=== PATIENT | female | born 1960 | race Caucasian/White ===

== ENCOUNTER → 2019-02-06 12:04 | Outpatient (CLI) | payer OTHER, SELFPAY ==
--- NOTE | 2019-02-06 12:05 | DI.MG.S_ITS ---
BILATERAL DIGITAL SCREENING MAMMOGRAM 3D/2D WITH CAD: 02/06/2019 CLINICAL: Routine screening. Comparison is made to exams dated: 09/17/2014 mammogram, 10/14/2010 mammogram, and 08/13/2008 mammogram - [facility]. The tissue of both breasts is extremely dense, which lowers the sensitivity of mammography. Current study was also evaluated with a Computer Aided Detection (CAD) system. No significant masses, calcifications, or other findings are seen in either breast. There has been no significant interval change. IMPRESSION: NEGATIVE There is no mammographic evidence of malignancy. A 1 year screening mammogram is recommended. This exam was interpreted at Station ID: [id number]. NOTE: For mammograms, a report in lay terms will be sent to the patient. Approximately 15% of breast malignancies will not be visualized mammographically. In the management of a palpable breast mass, a negative mammogram must not discourage biopsy of a clinically suspicious lesion. Electronically Signed By: Kylah philippe/ernesto:02/06/2019 13:03:02 letter sent: Normal Exam ACR BI-RADS Category 1: Negative 3341F
== END ==
PROVIDERS: PCP Student in an Organized Health Care Education/Training Program; Visit Provider Student in an Organized Health Care Education/Training Program
DX: Z12.31 Encounter for screening mammogram for malignant neoplasm of breast (principal)
CPT/HCPCS: 77063; 77067

== ENCOUNTER 2019-08-15 10:22 | Outpatient (CLI) | payer OTHER, SELFPAY ==
--- NOTE | 2019-08-15 10:23 | DI.RAD.S_ITS ---
PROCEDURE: PAIN C/T FACET INJ/BLK 1ST L INDICATIONS: SPONDYLOSIS FINDINGS: Fluoroscopic spot filming was performed to verify placement of spinal needles at the C4-C5, C5-C6 and C6-C7 level(s), as labeled on the films. Appropriate location(s) of the needle tip(s) was confirmed by injection of iodinated contrast. IMPRESSION: Fluoroscopy for pain management. Dictated by: Yasmin Maya M.D. on 08/15/2019 at 15:43 Approved by: Yasmin Maya M.D. on 08/15/2019 at 15:44
[2019-08-15 10:44] VITALS: BP 104/64; PULSE 76; RESP 16; TEMP 36.2; O2SAT 98
[2019-08-15 11:22] VITALS: BP 113/76; PULSE 72; RESP 16; O2SAT 98
[2019-08-15 11:27] VITALS: BP 110/76; PULSE 74; RESP 16; O2SAT 97
--- NOTE | 2019-08-15 11:29 | PC.NURSE ---
NO SEDATION MEDS GIVEN AT THIS TIME.
[2019-08-15 11:32] VITALS: BP 110/80; PULSE 70; RESP 16; O2SAT 97
[2019-08-15] MEDS: IOPAMIDOL 15 ML VIAL 3 ML INJ (11:35)
[2019-08-15] MEDS: BUPIVACAINE 0.5% (PF) VIAL 2 ML INJ (11:35)
[2019-08-15] MEDS: DEXAMETHASONE 10 MG/ML VIAL 30 MG INJ (11:36)
[2019-08-15 11:37] VITALS: BP 109/76; PULSE 74; RESP 16; O2SAT 98
--- NOTE | 2019-08-15 11:38 | PC.NURSE ---
NO SEDATION MEDS GIVEN. ASSISTING PT OFF TABLE AND TRANSPORTING TO POST PROC AREA IN STABLE CONDITION. PASSING RN CARE OF PT OFF TO GÓMEZ Fernandez RN
--- NOTE | 2019-08-15 11:41 | PM.PROC.1 ---
Procedures Date/Time Date of procedure: 08/15/19 Time of procedure: 11:42 General Procedure description: PREOP DIAGNOSIS 1. FACET ARTHROPATHY 2. AXIAL NECK PAIN POST OP DIAGNOSIS 1. FACET ARTHROPATHY 2. AXIAL NECK PAIN PROCEDURES 1. FLUOROSCOPICALLY GUIDED, CONTRAST-CONTROLLED LEFT C4/5, C5/6 AND C6/7 FACET JOINT INJECTIONS WITH CONSCIOUS SEDATION. PHYSICIAN: Mack Hurtado, DO INDICATIONS Shae is referred by Dr. Avalos for treatment of Axial Neck Pain DESCRIPTION OF PROCEDURE Fluoroscopically guided, contrast-controlled left C4/5, C5/6 and C6/7 facet joint injections with conscious sedation. Following review of allergy and review of potential side effects and complications, including, but not necessarily limited to, infection, allergic reaction, local tissue breakdown, stroke, temporary or permanent nerve injury and paralysis, the patient indicated that the patient understood and agreed to proceed. An informed consent document was signed by the patient, witnessed by a nurse, and placed in the patient's chart. Additionally, other treatment options including medications, modalities, and physical therapy were reviewed with the patient. After review of previous anaesthesic history and IV conscious sedation the patient was deemed safe to proceed with todays procedure with IV conscious sedation as ASA class II designation. Safety time-out was performed to confirm patient ID, procedure to be performed and site of procedure. IV sedation was deemed unnecessary and thus not administered by the RN after DO order, patient comfort remained stable during the course of the procedure while the patient remained responsive to all verbal commands In the prone position, following sterile prep and drape of the cervical spine region, the posterior aspect of the left C4/5, C5/6 and C6/7 facet joints were identified fluoroscopically. The skin was anesthetized via a 25-gauge 1.5-inch needle with 1% lidocaine solution into the corresponding facet joints. At this point, a 25-gauge 2.5-inch spinal needle was atraumatically introduced and advanced under fluoroscopic guidance into the corresponding facet joints. Following negative aspiration, injections of approximately 0.2-cc of Isovue 200 confirmed interarticular placement without vascular uptake. At this point, a total of 1 cc including 0.5cc or 5mg of dexamethasone combined with 0.5 cc of 1% lidocaine solution was injected without complication into each of the corresponding facet joints. The procedure tolerated the procedure well without signs or symptoms of complications prior to transfer to the recovery area continued monitoring without incident. The patient was then transferred to the recovery area where they were observed for an appropriate period of time after the injection. The patient reported a VAS score of 7 prior to the procedure and a post-procedure VAS of 0. Total Fluoroscopy Time: 14.5 seconds Total Conscious Sedation Time: 0 min POST OP INSTRUCTIONS They were provided a Pain Log to continue to record their response to the target-specific procedure prior to their follow-up visit with their referring physician. Additionally, specific post-injection care instructions and a contact number to our office were provided if concerns arise regarding possible complications associated with the procedure are suspected. Mack Hurtado DO Complications: none
[2019-08-15 11:47] VITALS: BP 117/71; PULSE 73; RESP 16; O2SAT 100
--- NOTE | 2019-08-15 12:00 | PC.NURSE ---
Post procedure note: Patient arrived at 1145. Awake and alert. Handoff report received from Arya Valencia RN. Procedure done without sedation. VSS on arrival. Discharge instructions reviewed with patient with good understanding. No complaints of pain or unusual numbness or tingling. Discharged to home w/c to car with dad at 1155.
== END 2019-08-15 11:55 | disposition home or self-care (01) ==
LOC: RAD 10:23
PROVIDERS: PCP Student in an Organized Health Care Education/Training Program; Visit Provider Physical Medicine & Rehabilitation
DX: M47.812 Spondylosis without myelopathy or radiculopathy, cervical region (principal); M54.2 Cervicalgia
CPT/HCPCS: 64490; 64491; 64492; 64494; J1100; J2250; J3010

== ENCOUNTER → 2021-10-18 16:32 | Outpatient (CLI) | payer OTHER, SELFPAY ==
--- NOTE | 2021-10-18 16:34 | DI.MG.S_ITS ---
BILATERAL DIGITAL SCREENING MAMMOGRAM 3D/2D WITH CAD: 10/18/2021 CLINICAL: Routine screening. Comparison is made to exams dated: 02/06/2019 mammogram, 09/17/2014 mammogram, and 10/14/2010 mammogram - [facility]. The tissue of both breasts is extremely dense, which lowers the sensitivity of mammography. Current study was also evaluated with a Computer Aided Detection (CAD) system. No significant masses, calcifications, or other findings are seen in either breast. There has been no significant interval change. IMPRESSION: NEGATIVE There is no mammographic evidence of malignancy. A 1 year screening mammogram is recommended. This exam was interpreted at Station ID: [id number]. NOTE: For mammograms, a report in lay terms will be sent to the patient. Approximately 15% of breast malignancies will not be visualized mammographically. In the management of a palpable breast mass, a negative mammogram must not discourage biopsy of a clinically suspicious lesion. Electronically Signed By: Ni rodriguez/ernesto:10/19/2021 09:52:06 letter sent: Normal Exam ACR BI-RADS Category 1: Negative 3341F
== END ==
PROVIDERS: PCP Student in an Organized Health Care Education/Training Program; Referring Provider Student in an Organized Health Care Education/Training Program; Visit Provider Student in an Organized Health Care Education/Training Program
DX: Z12.31 Encounter for screening mammogram for malignant neoplasm of breast (principal)
CPT/HCPCS: 77063; 77067

== ENCOUNTER → 2022-03-10 16:01 | Outpatient (CLI) | payer OTHER, SELFPAY ==
[2022-03-10 19:42] LABS: Cholesterol 232 mg/dL (140-199); HDL Cholesterol 62 mg/dL (40-60); LDL Cholesterol Calculated 153 mg/dL (<100); Triglycerides 84 mg/dL (35-150)
== END ==
PROVIDERS: PCP Student in an Organized Health Care Education/Training Program; Referring Provider Student in an Organized Health Care Education/Training Program; Visit Provider Student in an Organized Health Care Education/Training Program
DX: E78.5 Hyperlipidemia, unspecified (principal)
CPT/HCPCS: 36415; 80061

== ENCOUNTER → 2023-02-01 15:18 | Outpatient (CLI) | payer OTHER, SELFPAY | PROVIDERS: PCP Student in an Organized Health Care Education/Training Program; Visit Provider Nurse Practitioner Family | DX: R30.0 Dysuria (principal) | CPT/HCPCS: 87077; 87086; 87186; 87210 ==

== ENCOUNTER → 2023-08-03 15:39 | Outpatient (CLI) | payer OTHER, SELFPAY ==
[2023-08-03 17:16] LABS: UR Morphine/Opiate cutoff 300 Positive (Negative); Ur Creatinine Normal (Normal); Ur Specific Gravity Normal (Normal); Urine Amphetamines Negative (Negative); Urine Barbiturates Negative (Negative); Urine Benzodiazepines Negative (Negative); Urine Cocaine Negative (Negative); Urine MDMA Negative (Negative); Urine Methadone Negative (Negative); Urine Methamphetamines Negative (Negative); Urine Oxycodone Positive (Negative); Urine Phencyclidine Negative (Negative); Urine Tetrahydrocannabinol Negative (Negative); Urine Tricyclic Antidepressant Positive (Negative); Urine pH Normal (Normal)
== END ==
PROVIDERS: PCP Family Medicine; Referring Provider Family Medicine; Visit Provider Family Medicine
DX: F11.90 Opioid use, unspecified, uncomplicated (principal)
CPT/HCPCS: 80305

== ENCOUNTER → 2023-09-21 11:12 | Outpatient (CLI) | payer OTHER, SELFPAY ==
--- NOTE | 2023-09-21 11:16 | DI.US.S_ITS ---
PROCEDURE: US PELVIC COMPLETE INDICATIONS: IRREGULAR/INFREQUENT MENSES. BLEEDING POST ESTROGEN USE. TECHNIQUE: Real-time scanning was performed of the pelvic organs, with image documentation. Additional endovaginal scanning was necessary due to incomplete visualization of the adnexal and endometrial structures by transabdominal scanning. COMPARISON: None. FINDINGS: Uterus: Uterus is anteverted and normal in size at 7.4 x 4.1 x 3.4 cm. The myometrium is heterogeneous. The endometrium measures 6 mm combined thickness. Nabothian cysts are present. Ovaries: The right ovary measures 1.8 x 1.5 x 0.6 cm, with a calculated ovarian volume of 1 cc. Left ovary not visualized due to overlying bowel gas and presumed atrophy. Other: No pathologic free abdominal or pelvic fluid. IMPRESSION: Endometrial stripe measures 6 millimeters, abnormal in the setting of postmenopausal bleeding . Recommend tissue sampling. We strive to produce accurate, complete, and clear reports of imaging services. To assist us in improving patient care, this report was composed using standard report templates and voice recognition software. Therefore, it may contain abnormal punctuation, insertions and/or omissions. Occasional wrong-word or sound-alike substitutions may occur. Though we review the report and make efforts to correct it, we do recommend that the report be read carefully in proper context to recognize any text inaccuracies. Dictated by: Abhishek Novak M.D. on 09/21/2023 at 14:52 Approved by: Abhishek Novak M.D. on 09/21/2023 at 14:55
== END ==
PROVIDERS: PCP Family Medicine; Referring Provider Family Medicine; Visit Provider Family Medicine
DX: N95.0 Postmenopausal bleeding (principal); R93.89 Abnormal findings on diagnostic imaging of other specified body structures; N88.8 Other specified noninflammatory disorders of cervix uteri
CPT/HCPCS: 76830; 76856

== ENCOUNTER 2023-10-04 20:16 | Observation (INO) | payer OTHER, SELFPAY ==
[2023-10-04] VITALS (13 sets, daily range): BP systolic 99–131; BP diastolic 56–75; PULSE 83–107; RESP 15–38; TEMP 36.9–37; O2SAT 91–99; BMI 25.0; BMI 25.3
--- NOTE | 2023-10-04 20:39 | DI.RAD.S_ITS ---
PROCEDURE: XR CHEST 1V INDICATIONS: suspected sepsis TECHNIQUE: One view of the chest was acquired. COMPARISON: [facility], , CHEST 2 VIEW, 01/26/2015, 21:05. FINDINGS: Surgical changes and devices: None. Lungs and pleura: Ill-defined opacity in left infrahilar region is seen. Right lung is clear. No pleural effusions or pneumothorax. Mediastinum: Mediastinal contours appear normal. Heart size is normal. Bones and chest wall: No suspicious bony lesions. Overlying soft tissues appear unremarkable. IMPRESSION: Finding is concerning for small left infrahilar infiltrate versus atelectasis. No pleural effusion or pneumothorax. Dictated by: Zachary Landon M.D. on 10/04/2023 at 21:15 Approved by: Zachary Landon M.D. on 10/04/2023 at 21:17
--- NOTE | 2023-10-04 20:52 | PC.NURSE ---
Pt states that she traveled to [place], then to [place] for 1 month. At end of her visit in [place] she had emergent gallbladder surgery.
[2023-10-04] MEDS: SODIUM CHLORIDE 0.9% 1,000 ML 1000 ML IV (20:59)
[2023-10-04 21:12] LABS: INR 1.5 (0.9-1.3); Prothrombin Time 16.7 SECONDS (9.4-12.5)
[2023-10-04 21:14] LABS: Add Manual Diff / Slide Review NO; Basophils Absolute Auto 100 /uL (0-100); Basophils Percent Auto 0.3 % (0-2); Eosinophils Absolute Auto 100 /uL (0-450); Eosinophils Percent Auto 0.4 % (2-4); Hematocrit 29.5 % (36-46); Lymphocytes Absolute Auto 1000 /uL (1100-4500); Mean Corpuscular HGB Conc 33.9 % (30-36); Mean Corpuscular Volume 88.6 fL (80-100); Monocytes Absolute Auto 1700 /uL (0-900); Monocytes Percent Auto 7.1 % (3-14); Neutrophils Absolute Auto 21100 /uL (1500-7000); Neutrophils Percent Auto 88.2 % (50-75); Platelet Count 390 X10^3/uL (150-400); Red Blood Cell Count 3.33 X10^6/uL (4.0-5.2); Red Cell Distribution Width 14.2 % (11.6-14.8); White Blood Cell Count 23.9 X10^3/uL (4.5-11.0)
[2023-10-04 21:15] LABS: PTT Partial Thromboplastin Tim 35 SECONDS (25.1-36.5)
[2023-10-04 21:31] LABS: Alanine Aminotransferase 40 IU/L (<35); Albumin 3.2 g/dL (3.5-5.0); Alkaline Phosphatase 165 U/L (38-126); Aspartate Aminotransferase 36 IU/L (14-36); BUN Creatinine Ratio 14.1 (6-22); Bilirubin Total 0.5 mg/dL (0.2-1.3); Blood Urea Nitrogen 9 mg/dL (7-17); Calcium 8.9 mg/dL (8.4-10.2); Carbon Dioxide 24 mmol/L (22-32); Chloride 99 mmol/L (98-107); Estimated Glomerular Filt Rate > 60 mL/min (>60); Globulin 3.2 g/dL (1.7-4.1); Glucose 223 mg/dL (80-110); HEMOLYSIS < 15 (0-50); Lipase 21 U/L (23-300); Sodium 132 mmol/L (137-145); Total Protein 6.4 g/dL (6.3-8.2)
[2023-10-04 21:34] LABS: Potassium 2.5 mmol/L (3.4-5.1); Procalcitonin 2.63 ng/mL (<0.5)
[2023-10-04] MEDS: cefTRIAXone 2,000 MG in SODIUM CHLORIDE 0.9% 100 ML 200 MG IV (21:40)
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
[2023-10-04 21:55] LABS: Bacteria Urine Many (>30); Culture Indicated Urine Specimen Cultured; RBC Urine 1-5/HPF (0-5/HPF); Squamous Epithelial Cell Urine 0-1 /HPF (0-5/HPF); Urine Volume 10mL (spun); WBC Urine 10-30/HPF (0-5/HPF)
[2023-10-04] MEDS: POTASSIUM CHLORIDE 20 MEQ TAB 40 MEQ PO (22:02)
--- NOTE | 2023-10-04 22:03 | PC.NURSE ---
Pt states that she recently had an appointment for rule out endometriosis on 09/23/23 but did not go due to symptoms being present
[2023-10-05] VITALS (7 sets, daily range): BP systolic 91–137; BP diastolic 57–77; PULSE 79–116; RESP 16; TEMP 36.2–38.9; O2SAT 95–96
[2023-10-05] MEDS: KCL 20 MEQ IN NS 1,000 ML 84 MEQ IV ×2 (01:02→16:22)
[2023-10-05] MEDS: AMITRIPTYLINE 10 MG TABLET 100 MG PO (01:30)
[2023-10-05] MEDS: AMITRIPTYLINE 25 MG TABLET 100 MG PO (01:30)
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
[2023-10-05] MEDS: ACETAMINOPHEN 325 MG TABLET 650 MG PO (04:00)
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
[2023-10-05 06:23] LABS: Add Manual Diff / Slide Review NO; Basophils Absolute Auto 0 /uL (0-100); Basophils Percent Auto 0.2 % (0-2); Eosinophils Absolute Auto 100 /uL (0-450); Eosinophils Percent Auto 0.3 % (2-4); Hematocrit 26.4 % (36-46); Hemoglobin 9.1 g/dL (12.0-16.0); Lymphocytes Absolute Auto 1300 /uL (1100-4500); Lymphocytes Percent Auto 6.1 % (25-40); Mean Corpuscular HGB Conc 34.5 % (30-36); Mean Corpuscular Hemoglobin 30.7 PG (26-34); Mean Corpuscular Volume 89.1 fL (80-100); Monocytes Absolute Auto 1800 /uL (0-900); Monocytes Percent Auto 8.6 % (3-14); Neutrophils Absolute Auto 18000 /uL (1500-7000); Neutrophils Percent Auto 84.8 % (50-75); Platelet Count 349 X10^3/uL (150-400); Red Blood Cell Count 2.97 X10^6/uL (4.0-5.2); White Blood Cell Count 21.2 X10^3/uL (4.5-11.0)
[2023-10-05 06:42] LABS: Lactate (Lactic Acid) 0.6 mmol/L (0.7-2.1)
[2023-10-05 06:43] LABS: Alanine Aminotransferase 35 IU/L (<35); Albumin 2.9 g/dL (3.5-5.0); Alkaline Phosphatase 153 U/L (38-126); Aspartate Aminotransferase 23 IU/L (14-36); BUN Creatinine Ratio 9.8 (6-22); Bilirubin Total 0.4 mg/dL (0.2-1.3); Blood Urea Nitrogen 6 mg/dL (7-17); Calcium 8.3 mg/dL (8.4-10.2); Carbon Dioxide 26 mmol/L (22-32); Chloride 105 mmol/L (98-107); Estimated Glomerular Filt Rate > 60 mL/min (>60); Glucose 114 mg/dL (80-110); HEMOLYSIS < 15 (0-50); Phosphorous 2.3 mg/dL (2.8-4.1); Potassium 3.1 mmol/L (3.4-5.1); Sodium 135 mmol/L (137-145); Total Protein 5.9 g/dL (6.3-8.2)
[2023-10-05 06:50] LABS: NT-proBNP (BNP-Adult 18+) 1970 pg/mL (<125)
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
[2023-10-05 07:23] LABS: TSH w/ Reflex to FT4 0.06 uIU/mL (0.47-4.68)
[2023-10-05 07:50] LABS: Free T4, Direct Thyroxine 1.34 ng/dL (0.78-2.19)
[2023-10-05] MEDS: POTASSIUM CHLORIDE IN WATER 10 MEQ/100 ML PIGGYBACK 100 MEQ IV ×4 (08:43→12:23)
[2023-10-05] MEDS: ENOXAPARIN 40 MG/0.4 ML SYRINGE SUBCUT (09:02)
[2023-10-05] MEDS: MULTIVITAMIN 1 TABLET 1 TAB PO (09:02)
[2023-10-05] MEDS: SODIUM,POTASSIUM PHOSPHATES PACKET 2 EACH PO (13:49)
[2023-10-05] MEDS: OXYCODONE IR 5 MG TABLET PO ×3 (14:38→22:48)
--- NOTE | 2023-10-05 14:58 | CM.DANOTE ---
Initial DCP Assessment Visit Note Reviewed EMR and team rounds for pt's medical status and updates. Met with pt at bedside to introduce self and role. Pt was found to be alert/oriented but drowsy, expressing feeling much better today after having received IV fluids and ABO's since admission. Pt is independent at baseline and resides in her own home with her significant other. Payor: [facility] PCP: Dr. Stinson Pt is a 63 year-old F who presented to the ED last evening with c/o 5-days of high fevers, weakness. She was found to have a high white blood count in the ED, afebrile at the time. Pt was started on IV ABO's and fluids with suspected bacteremia. No other abnormalities noted that could be contributing to the etiology of the fevers. Pt was then placed in OBS for further IV ABO treatment and monitoring. DCP will continue to follow and assist with any further evolving home d/c needs. No needs are anticipated at this time. Discharge Planning/Care Management CM Discharge Assessment Start: 10/05/23 14:55 Freq: Status: Active Protocol: Document 10/05/23 14:56 DPL (Rec: 10/05/23 14:57 DPL [id number]) Discharge Planning Assessment Assigned Fractionation Supervisor VALENCIA Hamm Advance Directives? No History Provided By Patient,Medical Record Has Patient been admitted in last 30 No days? Prior Living Arrangements House Household Members significant other Type of transporation used prior to Drives own vehicle admit Independent with ADL's Yes Is patient alert and oriented? Yes Comment N/A Caregiver for Another No Comment N/A Comment No identified home d/c needs at this time. Discharge Plan Home Transportation Arrangement Boyfriend Referrals Initiated None needed Whiteboard Updated in Patient Room with Yes name and ext. # of Fractionation Supervisor Review Status In Process Please Provide Date Initial DC 10/05/23 Assessment Was Performed
[2023-10-05] MEDS: OXYCODONE/ACETAMINOPHEN 5/325 TABLET 1 TAB PO ×2 (18:26→22:48)
[2023-10-05] MEDS: AMITRIPTYLINE 25 MG TABLET 200 MG PO (22:40)
[2023-10-05] MEDS: cefTRIAXone 1,000 MG in SODIUM CHLORIDE 0.9% 100 ML 200 MG IV (22:41)
[2023-10-06] VITALS: BP 128/86; PULSE 82; RESP 16; TEMP 36.4; O2SAT 97
[2023-10-06] MEDS: KCL 20 MEQ IN NS 1,000 ML 84 MEQ IV (03:26)
[2023-10-06 04:00] VITALS: O2SAT 93
[2023-10-06 04:06] VITALS: BP 110/54; PULSE 106; RESP 16; TEMP 36.9; O2SAT 93
[2023-10-06 06:51] LABS: BUN Creatinine Ratio 12.5 (6-22); Blood Urea Nitrogen 9 mg/dL (7-17); Calcium 8.3 mg/dL (8.4-10.2); Carbon Dioxide 25 mmol/L (22-32); Chloride 109 mmol/L (98-107); Estimated Glomerular Filt Rate > 60 mL/min (>60); Glucose 104 mg/dL (80-110); HEMOLYSIS < 15 (0-50); Magnesium 1.9 mg/dL (1.6-2.3); Phosphorous 2.6 mg/dL (2.8-4.1); Potassium 4.2 mmol/L (3.4-5.1); Sodium 138 mmol/L (137-145)
[2023-10-06 08:00] VITALS: BP 136/71; PULSE 107; RESP 16; TEMP 37.5; O2SAT 94
[2023-10-06] MEDS: OXYCODONE IR 5 MG TABLET PO (08:05)
[2023-10-06] MEDS: OXYCODONE/ACETAMINOPHEN 5/325 TABLET 1 TAB PO (08:05)
[2023-10-06] MEDS: ENOXAPARIN 40 MG/0.4 ML SYRINGE SUBCUT (08:06)
[2023-10-06] MEDS: MULTIVITAMIN 1 TABLET 1 TAB PO (08:06)
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
--- NOTE | 2023-10-06 11:19 | CM.DPC ---
DCP Cont. Reviewed EMR and team rounds for status updates. Pt has steadily improved, and has been cleared medically for d/c today. Her boyfriend will plan to transport home. No further DCP needs identified at this time.
--- NOTE | 2023-10-06 11:37 | PC.NURSE ---
Day shift: Discharge instructions gone over with patient. All questions answered, patient stated understanding. PIV and tele d/c'ed prior to discharge. All belongings with patient. LINETTE Mcgrath escorted patient to [place] pharmacy where patient plans to diamond picker her PO antibiotic and then her friend will drive her home.
--- NOTE | 2023-10-20 07:36 | PC.NURSE ---
Late Entry: Ceftriaxone infusion initiated 10/04 at 2241 completed at 2312.
== END 2023-10-06 11:25 | disposition home or self-care (01) ==
LOC: ED 21:04 → AC 23:20
PROVIDERS: Admitting Provider Internal Medicine; Emergency Provider Emergency Medicine; PCP Family Medicine; Referring Provider Emergency Medicine; Visit Provider Internal Medicine
DX: N39.0 Urinary tract infection, site not specified (principal); R50.9 Fever, unspecified; E86.0 Dehydration; E87.6 Hypokalemia; D72.829 Elevated white blood cell count, unspecified
CPT/HCPCS: 36415; 71045; 74177; 80048; 80053; 81003; 81015; 83605; 83690; 83735; 83880; 84100; 84145; 84439; 84443; 85025; 85610; 85730; 87040; 87077; 87086; 87186; 96365; 96366; 96367; 96368; 96372; 99285; G0378; J0696; J1650; Q9967

== ENCOUNTER → 2023-10-23 13:43 | Outpatient (CLI) | payer OTHER, SELFPAY ==
[2023-10-04 23:50] VITALS: BMI 25.3
[2023-10-23 15:10] LABS: Hemoglobin A1C% w Est Avg Glu 5.1 % (4.0-6.0)
[2023-10-23 15:42] LABS: TSH w/ Reflex to FT4 0.79 uIU/mL (0.47-4.68)
== END ==
PROVIDERS: PCP Family Medicine; Referring Provider Family Medicine; Visit Provider Family Medicine
DX: R73.09 Other abnormal glucose (principal); R79.89 Other specified abnormal findings of blood chemistry; Z86.39 Personal history of other endocrine, nutritional and metabolic disease
CPT/HCPCS: 36415; 83036; 84443

== ENCOUNTER → 2023-10-26 16:26 | Outpatient (CLI) | payer OTHER, SELFPAY ==
[2023-10-04 23:50] VITALS: BMI 25.3
== END ==
PROVIDERS: PCP Family Medicine; Visit Provider Family Medicine
DX: N39.0 Urinary tract infection, site not specified (principal)
CPT/HCPCS: 87086

== ENCOUNTER → 2023-10-26 17:10 | Outpatient (CLI) | payer OTHER, SELFPAY ==
[2023-10-04 23:50] VITALS: BMI 25.3
--- NOTE | 2023-10-26 17:12 | DI.RAD.S_ITS ---
PROCEDURE: XR LUMBAR SPINE 2-3V INDICATIONS: back pain TECHNIQUE: 3 views of the lumbar spine were acquired. COMPARISON: [facility], CT, CT ABDOMEN PELVIS W CON, 10/04/2023, 22:07. [facility], CR, L-SPINE 2-3 VIEWS, 08/03/2017, 11:59. FINDINGS: Bones: 5 [id number] vertebrae are present. Exaggerated lumbar spine lordosis. Dextroscoliosis. Multilevel loss of disc space height. Lower lumbar spine facet joint hypertrophy. No vertebral body compression fractures. No suspicious bony lesions. Soft tissues: Prominent stool in the colon.. No suspicious soft tissue calcifications. Clips in the right upper quadrant. IMPRESSION: Moderate DDD and degenerative changes. Scoliosis. Dictated by: Seth Mims M.D. on 10/27/2023 at 12:18 Approved by: Seth Mims M.D. on 10/27/2023 at 12:20
--- NOTE | 2023-10-26 17:12 | DI.RAD.S_ITS ---
PROCEDURE: XR CERVICAL SPINE 2V OR 3V INDICATIONS: neck pain TECHNIQUE: 3 view(s) of the cervical spine were acquired. COMPARISON: [facility], CR, XR CERVICAL SPINE 2 OR 3 VIEWS, 09/14/2017, 14:27. FINDINGS: Bones: No fractures or dislocations to the T1 level. The lateral masses of C1 appear intact on the odontoid view. No suspicious bony lesions. Lumbar spine lordosis is somewhat exaggerated. There is multilevel loss of disc space height, most pronounced at C5-C6. There is endplate sclerosis, osteophytosis, and uncovertebral joint hypertrophy. Soft tissues: No prevertebral soft tissue swelling. IMPRESSION: Severe degenerative changes in the cervical spine most pronounced at C5-C6. Slightly progressed compared to 2018. Dictated by: Seth Mims M.D. on 10/27/2023 at 12:15 Approved by: Seth Mims M.D. on 10/27/2023 at 12:18
[2023-10-26 17:48] LABS: Add Manual Diff / Slide Review NO; Basophils Absolute Auto 100 /uL (0-100); Basophils Percent Auto 0.9 % (0-2); Eosinophils Absolute Auto 100 /uL (0-450); Eosinophils Percent Auto 2.3 % (2-4); Hematocrit 35.6 % (36-46); Hemoglobin 11.9 g/dL (12.0-16.0); Lymphocytes Absolute Auto 2000 /uL (1100-4500); Lymphocytes Percent Auto 30.5 % (25-40); Mean Corpuscular HGB Conc 33.3 % (30-36); Mean Corpuscular Hemoglobin 30.2 PG (26-34); Mean Corpuscular Volume 90.6 fL (80-100); Monocytes Absolute Auto 500 /uL (0-900); Monocytes Percent Auto 7.5 % (3-14); Neutrophils Absolute Auto 3900 /uL (1500-7000); Neutrophils Percent Auto 58.8 % (50-75); Platelet Count 331 X10^3/uL (150-400); Red Blood Cell Count 3.92 X10^6/uL (4.0-5.2); Red Cell Distribution Width 15.3 % (11.6-14.8); White Blood Cell Count 6.6 X10^3/uL (4.5-11.0)
[2023-10-26 18:21] LABS: HEMOLYSIS < 15 (0-50); Iron 66 ug/dL (37-170)
[2023-10-26 18:23] LABS: Alanine Aminotransferase 16 IU/L (<35); Albumin 4.2 g/dL (3.5-5.0); Albumin Globulin Ratio 1.3 (1.0-2.8); Alkaline Phosphatase 80 U/L (38-126); Aspartate Aminotransferase 29 IU/L (14-36); Bilirubin Total 0.5 mg/dL (0.2-1.3); Blood Urea Nitrogen 20 mg/dL (7-17); Calcium 10.1 mg/dL (8.4-10.2); Carbon Dioxide 27 mmol/L (22-32); Chloride 104 mmol/L (98-107); Estimated Glomerular Filt Rate > 60 mL/min (>60); Globulin 3.2 g/dL (1.7-4.1); Glucose 97 mg/dL (80-110); HEMOLYSIS < 15 (0-50); Potassium 4.2 mmol/L (3.4-5.1); Sodium 136 mmol/L (137-145); Total Protein 7.4 g/dL (6.3-8.2)
[2023-10-26 18:32] LABS: Percent Iron Saturation 25 % (15-50); Total Iron Binding Capacity 266 ug/dL (265-497); Transferrin 228 mg/dL (206-381)
[2023-10-26 19:10] LABS: Vitamin B12 943 pg/mL (239-931)
== END ==
PROVIDERS: PCP Family Medicine; Referring Provider Family Medicine; Visit Provider Family Medicine
DX: M47.812 Spondylosis without myelopathy or radiculopathy, cervical region (principal); M48.02 Spinal stenosis, cervical region; M47.816 Spondylosis without myelopathy or radiculopathy, lumbar region; M51.36 Other intervertebral disc degeneration, lumbar region; M41.9 Scoliosis, unspecified; N39.0 Urinary tract infection, site not specified; M54.50 Low back pain, unspecified; D64.9 Anemia, unspecified; E78.5 Hyperlipidemia, unspecified; R73.9 Hyperglycemia, unspecified
CPT/HCPCS: 36415; 72040; 72100; 80053; 82607; 83540; 83550; 85025; 87077; 87086; 87186

== ENCOUNTER → 2023-11-06 10:55 | Outpatient (CLI) | payer OTHER, SELFPAY ==
[2023-10-04 23:50] VITALS: BMI 25.3
[2023-11-06 13:10] LABS: Appearance Urine UA CLEAR; Bilirubin Urine UA NEGATIVE (NEGATIVE); Color Urine UA YELLOW; Glucose Urine UA NEGATIVE (Negative); Ketones Urine UA NEGATIVE (NEGATIVE); Leukocyte Esterase Urine UA NEGATIVE (NEGATIVE); Nitrite Urine UA NEGATIVE (Negative); Occult Blood Urine UA NEGATIVE (Negative); Protein Urine UA NEGATIVE (Negative); Specific Gravity Urine UA 1.015 (1.000-1.035); Urobilinogen Urine UA 0.2 E.U./dL (0.2)
[2023-11-06 13:11] LABS: Urine Volume 10mL (spun)
[2023-11-06 13:15] LABS: Bacteria Urine None Seen; Culture Indicated Urine Cult Not Indicated; RBC Urine None Seen (0-5/HPF); Squamous Epithelial Cell Urine 10-30 /HPF (0-5/HPF); WBC Urine None Seen (0-5/HPF)
== END ==
PROVIDERS: PCP Family Medicine; Referring Provider Family Medicine; Visit Provider Family Medicine
DX: N39.0 Urinary tract infection, site not specified (principal)
CPT/HCPCS: 81001

== ENCOUNTER → 2023-12-07 16:36 | Outpatient (CLI) | payer OTHER, SELFPAY ==
[2023-10-04 23:50] VITALS: BMI 25.3
== END ==
PROVIDERS: PCP Family Medicine; Visit Provider Nurse Practitioner Family
DX: R39.9 Unspecified symptoms and signs involving the genitourinary system (principal); R35.0 Frequency of micturition
CPT/HCPCS: 87077; 87086

== ENCOUNTER → 2024-01-22 16:33 | Outpatient (CLI) | payer OTHER, SELFPAY ==
[2023-10-04 23:50] VITALS: BMI 25.3
== END ==
PROVIDERS: PCP Family Medicine; Visit Provider Family Medicine
DX: R30.0 Dysuria (principal)
CPT/HCPCS: 87077; 87086; 87186

== ENCOUNTER → 2024-02-20 07:45 | Outpatient (CLI) | payer OTHER, SELFPAY ==
[2023-10-04 23:50] VITALS: BMI 25.3
== END ==
PROVIDERS: PCP Family Medicine; Visit Provider Physician Assistant Surgical
DX: R30.0 Dysuria (principal)
CPT/HCPCS: 87077; 87086; 87186

== ENCOUNTER → 2024-07-18 14:59 | Outpatient (CLI) | payer OTHER, SELFPAY ==
[2023-10-04 23:50] VITALS: BMI 25.3
[2024-07-18 16:11] LABS: Add Manual Diff / Slide Review NO; Basophils Absolute Auto 0 /uL (0-100); Basophils Percent Auto 0.9 % (0-2); Eosinophils Absolute Auto 200 /uL (0-450); Eosinophils Percent Auto 3.2 % (2-4); Hematocrit 35.8 % (36-46); Hemoglobin 12.1 g/dL (12.0-16.0); Lymphocytes Absolute Auto 1800 /uL (1100-4500); Lymphocytes Percent Auto 38.4 % (25-40); Mean Corpuscular HGB Conc 33.8 % (30-36); Mean Corpuscular Volume 91.8 fL (80-100); Monocytes Absolute Auto 400 /uL (0-900); Monocytes Percent Auto 7.4 % (3-14); Neutrophils Absolute Auto 2400 /uL (1500-7000); Neutrophils Percent Auto 50.1 % (50-75); Platelet Count 340 X10^3/uL (150-400); White Blood Cell Count 4.8 X10^3/uL (4.5-11.0)
[2024-07-18 16:38] LABS: Cholesterol 243 mg/dL (140-199); HDL Cholesterol 69 mg/dL (40-60); LDL Cholesterol Calculated 156 mg/dL (<100); Triglycerides 90 mg/dL (35-150)
[2024-07-18 16:39] LABS: Hemoglobin A1C% w Est Avg Glu 5.3 % (4.0-6.0)
[2024-07-18 16:40] LABS: BUN Creatinine Ratio 16.3 (6-22); Blood Urea Nitrogen 13 mg/dL (7-17); Calcium 9.6 mg/dL (8.4-10.2); Carbon Dioxide 31 mmol/L (22-32); Chloride 105 mmol/L (98-107); Estimated Glomerular Filt Rate > 60 mL/min (>60); Glucose 104 mg/dL (80-110); HEMOLYSIS < 15 (0-50); Potassium 4.4 mmol/L (3.4-5.1); Sodium 136 mmol/L (137-145)
[2024-07-18 17:09] LABS: TSH w/ Reflex to FT4 0.92 uIU/mL (0.47-4.68)
[2024-07-18 17:26] LABS: Appearance Urine UA CLEAR; Bilirubin Urine UA NEGATIVE (NEGATIVE); Color Urine UA YELLOW; Glucose Urine UA NEGATIVE (Negative); Ketones Urine UA NEGATIVE (NEGATIVE); Leukocyte Esterase Urine UA NEGATIVE (NEGATIVE); Nitrite Urine UA NEGATIVE (Negative); Occult Blood Urine UA NEGATIVE (Negative); Protein Urine UA NEGATIVE (Negative); Urobilinogen Urine UA 0.2 E.U./dL (0.2)
[2024-07-18 17:34] LABS: UR Morphine/Opiate cutoff 300 Positive (Negative); Ur Creatinine Abnormal (Normal); Ur Specific Gravity Normal (Normal); Urine Cocaine Negative (Negative); Urine Tetrahydrocannabinol Positive (Negative); Urine pH Normal (Normal)
[2024-07-18 17:35] LABS: Urine Amphetamines Negative (Negative); Urine Barbiturates Negative (Negative); Urine Benzodiazepines Negative (Negative); Urine MDMA Negative (Negative); Urine Methadone Negative (Negative); Urine Methamphetamines Negative (Negative); Urine Oxycodone Positive (Negative); Urine Phencyclidine Negative (Negative); Urine Tricyclic Antidepressant Positive (Negative)
[2024-07-18 18:00] LABS: Bacteria Urine Occasional (0-1); Culture Indicated Urine Cult Not Indicated; RBC Urine None Seen (0-5/HPF); Squamous Epithelial Cell Urine 0-1 /HPF (0-5/HPF); Urine Volume 10mL (spun); WBC Urine None Seen (0-5/HPF); pH Urine UA 5.5 (4.5-8.0)
== END ==
LOC: LAB 15:00
PROVIDERS: Urology; PCP Family Medicine; Referring Provider Family Medicine; Visit Provider Family Medicine
DX: D64.9 Anemia, unspecified (principal); M43.06 Spondylolysis, lumbar region; F11.20 Opioid dependence, uncomplicated; N39.0 Urinary tract infection, site not specified; Z79.890 Hormone replacement therapy
CPT/HCPCS: 36415; 80048; 80061; 80305; 81001; 83036; 84443; 85025

== ENCOUNTER → 2025-04-07 11:13 | Outpatient (CLI) | payer MEDICARE, SELFPAY ==
[2023-10-04 23:50] VITALS: BMI 25.3
[2025-04-07 12:05] LABS: Add Manual Diff / Slide Review NO; Hematocrit 39.8 % (36-46); Hemoglobin 13.3 g/dL (12.0-16.0); Lymphocytes Absolute Auto 2200 /uL (1100-4500); Mean Corpuscular HGB Conc 33.5 % (30-36); Mean Corpuscular Hemoglobin 32.1 PG (26-34); Mean Corpuscular Volume 96.0 fL (80-100); Platelet Count 380 X10^3/uL (150-400)
[2025-04-07 12:25] LABS: Alanine Aminotransferase 12 IU/L (<35); Albumin 4.5 g/dL (3.5-5.0); Albumin Globulin Ratio 1.7 (1.0-2.8); Alkaline Phosphatase 64 U/L (38-126); Blood Urea Nitrogen 9 mg/dL (7-17); Calcium 10.0 mg/dL (8.4-10.2); Carbon Dioxide 25 mmol/L (22-32); Chloride 101 mmol/L (98-107); Cholesterol 177 mg/dL (140-199); Estimated Glomerular Filt Rate > 60 mL/min (>60); Globulin 2.6 g/dL (1.7-4.1); Glucose 102 mg/dL (70-99); HDL Cholesterol 80 mg/dL (40-60); HEMOLYSIS < 15 (0-50); Potassium 4.0 mmol/L (3.4-5.1); Sodium 136 mmol/L (137-145); Total Protein 7.1 g/dL (6.3-8.2); Triglycerides 99 mg/dL (35-150)
[2025-04-07 12:26] LABS: HEMOLYSIS < 15 (0-50); Iron 65 ug/dL (37-170)
[2025-04-07 12:39] LABS: Percent Iron Saturation 31 % (15-50); Total Iron Binding Capacity 213 ug/dL (265-497); Transferrin 189 mg/dL (206-381)
[2025-04-07 12:56] LABS: TSH w/ Reflex to FT4 0.79 uIU/mL (0.47-4.68)
[2025-04-07 13:15] LABS: Vitamin B12 653 pg/mL (239-931)
== END ==
PROVIDERS: PCP Family Medicine; Referring Provider Family Medicine; Visit Provider Family Medicine
DX: D64.9 Anemia, unspecified (principal); E78.5 Hyperlipidemia, unspecified; E87.6 Hypokalemia; R73.9 Hyperglycemia, unspecified; K21.9 Gastro-esophageal reflux disease without esophagitis; M48.02 Spinal stenosis, cervical region
CPT/HCPCS: 36415; 80053; 80061; 82607; 83540; 83550; 84443; 85025